=== PATIENT | female | born 1975 | race Caucasian/White ===

== ENCOUNTER 2021-05-22 22:04 | Inpatient (IN) | payer SELFPAY ==
[~2021-05-22] VITALS: Ht 162.6 cm; Wt 83.5 kg
[2021-05-22] MEDS ORDERED: ONDANSETRON HCL 4MG/2ML INJ IV STA (22:39)
[2021-05-22] MEDS ORDERED: SODIUM CHLORIDE 0.9% 1,000 ML IV ONE (22:45)
[2021-05-22 23:23] LABS: HEMATOCRIT. 32.9 % (36.0-48.0); HEMOGLOBIN. 11.3 g/dL (12.0-16.0); MEAN CORPUSCULAR VOLUME 90.2 fL (81.0-99.0); MEAN PLATELET VOLUME 7.4 fl (7.4-10.4); PLATELET 263 x1000/uL (130-400); RED BLOOD CELL COUNT 3.65 mill/uL (4.2-5.4); RED CELL DISTRIBUTION WIDTH 13.7 % (11.6-14.6)
[2021-05-22 23:24] LABS: CHLORIDE 101 mEq/L (98-107)
[2021-05-23] MEDS ORDERED: KETOROLAC 30MG/ML VIAL IV ONE (01:45)
[2021-05-23 02:01] LABS: CLARITY URINE TURBID (CLEAR); COLOR URINE YELLOW (YELLOW); KETONES URINE 2+ (NEGATIVE); LEUKOCYTE ESTERASE URINE 3+ (NEGATIVE); NITRITE URINE NEGATIVE (NEGATIVE); OCCULT BLOOD URINE 3+ (NEGATIVE); PH URINE 5.5 (4.5-8.0); PROTEIN URINE 1+ (NEGATIVE); SPECIFIC GRAVITY URINE 1.018 (1.005-1.030); UROBILINOGEN URINE 0.2 E.U./dL (0.2-1.0)
[2021-05-23] MEDS ORDERED: CEFTRIAXONE 1 G PREMIX 50 ML IV ONE (02:15)
[2021-05-23] MEDS ORDERED: ONDANSETRON HCL 4MG/2ML INJ IV ONE (03:45)
[2021-05-23] MEDS ORDERED: SODIUM CHLORIDE 0.9% 1,000 ML IV ONE ×2 (04:00)
[2021-05-23 04:33] LABS: PLATELET ESTIMATE NORMAL
[2021-05-23] MEDS ORDERED: ACETAMINOPHEN 650MG SUPP PR PRN (08:00)
[2021-05-23] MEDS ORDERED: ACETAMINOPHEN 650MG SUPP ONE (08:07)
[2021-05-23] MEDS ORDERED: CLONIDINE 0.1MG TABLET PO PRN (08:45)
[2021-05-23] MEDS ORDERED: DIPHENHYDRAMINE 50MG/ML VIAL IV PRN (08:45)
[2021-05-23] MEDS ORDERED: MORPHINE SULFATE 2 MG/ML CPJ (NOT FOR IM USE) IV PRN (08:45)
[2021-05-23] MEDS ORDERED: NALOXONE HCL 0.4MG/ML VIAL IV PRN (09:00)
[2021-05-23] MEDS: SODIUM CHLORIDE 0.9% 1,000 ML IV SCH ×2 (10:57→21:32)
[2021-05-23] MEDS ORDERED: DEXTROSE 50% WATER 50ML SYRINGE IV PRN (13:30)
[2021-05-23] MEDS: BLOOD SUGAR DIAGNOSTIC STRIP TEST SCH ×2 (16:40→21:00)
[2021-05-23 18:00] VITALS: BP 149/67
[2021-05-23] MEDS: INSULIN LISPRO 100 UNITS/ML SUBCUT SCH ×2 (18:34→21:28)
[2021-05-23 19:37] VITALS: BP 164/79
[2021-05-23] MEDS: ACETAMINOPHEN 325MG TABLET PO PRN (20:08)
[2021-05-23] MEDS: ONDANSETRON HCL 4MG/2ML INJ IV PRN (20:10)
[2021-05-23] MEDS ORDERED: CEFTRIAXONE 1,000 MG in DEXTROSE 5% WATER 50 ML IV SCH (21:00)
[2021-05-23] MEDS ORDERED: CEFTRIAXONE 1 G PREMIX 50 ML IV SCH (21:00)
[2021-05-23] MEDS ORDERED: INDO50CA99 PO (23:19)
[2021-05-23] MEDS ORDERED: ASPI-867 PO (23:19)
[2021-05-23] MEDS ORDERED: GLIP10TA10 PO (23:19)
[2021-05-23] MEDS ORDERED: CYCL10TA7 PO (23:19)
[2021-05-24] VITALS: BP 132/57
[2021-05-24] MEDS: ACETAMINOPHEN 325MG TABLET PO PRN ×2 (02:19→17:07)
[2021-05-24] MEDS: ONDANSETRON HCL 4MG/2ML INJ IV PRN (02:35)
[2021-05-24 04:27] VITALS: BP 120/58
[2021-05-24] MEDS ORDERED: METOCLOPRAMIDE HCL 10MG TABLET PO PRN (06:15)
[2021-05-24] MEDS: METOCLOPRAMIDE HCL 10MG/2ML VIAL IV PRN ×2 (06:27→12:48)
[2021-05-24 07:17] LABS: BASOPHILS % 0.2 % (0.0-2.0); EOSINOPHILS % 0.1 % (0.0-5.0); HEMATOCRIT. 29.4 % (36.0-48.0); HEMOGLOBIN. 9.8 g/dL (12.0-16.0); LYMPHOCYTES % 8.4 % (20.0-50.0); MEAN CORPUSCULAR HEMOGLOBIN 30.2 pg (28.0-32.0); MEAN CORPUSCULAR VOLUME 91.2 fL (81.0-99.0); MEAN PLATELET VOLUME 7.9 fl (7.4-10.4); MONOCYTES % 6.1 % (2.0-8.0); NEUTROPHILS % 85.2 % (40.0-76.0); PLATELET 213 x1000/uL (130-400); RED BLOOD CELL COUNT 3.23 mill/uL (4.2-5.4); RED CELL DISTRIBUTION WIDTH 13.6 % (11.6-14.6)
[2021-05-24 07:30] LABS: CHLORIDE 103 mEq/L (98-107)
[2021-05-24 07:40] VITALS: BP 129/65
[2021-05-24] MEDS: BLOOD SUGAR DIAGNOSTIC STRIP TEST SCH ×4 (07:40→20:39)
[2021-05-24 07:46] LABS: LDL CHOLESTEROL 59 mg/dL (5-100)
[2021-05-24 07:51] LABS: HDL CHOLESTEROL 49 mg/dL (40-59)
[2021-05-24] MEDS: INSULIN LISPRO 100 UNITS/ML SUBCUT SCH ×4 (08:42→21:20)
[2021-05-24] MEDS: SODIUM CHLORIDE 0.9% 1,000 ML IV SCH ×2 (08:46→17:10)
[2021-05-24 12:00] VITALS: BP 153/78
[2021-05-24 16:00] VITALS: BP 149/72
[2021-05-24 20:00] VITALS: BP 128/71
[2021-05-24] MEDS: MEROPENEM 1,000 MG in SODIUM CHLORIDE 0.9% 100 ML IV SCH (21:21)
[2021-05-25] VITALS: BP 150/76
[2021-05-25] MEDS: GUAIFENESIN-DM 200MG-20MG/10ML UDC PO PRN ×2 (00:15→21:20)
[2021-05-25] MEDS: SODIUM CHLORIDE 0.9% 1,000 ML IV SCH ×2 (01:04→11:00)
[2021-05-25 04:00] VITALS: BP 149/76
[2021-05-25] MEDS: MEROPENEM 1,000 MG in SODIUM CHLORIDE 0.9% 100 ML IV SCH ×3 (05:48→21:52)
[2021-05-25 06:05] LABS: BASOPHILS % 0.3 % (0.0-2.0); EOSINOPHILS % 0.8 % (0.0-5.0); HEMATOCRIT. 27.7 % (36.0-48.0); HEMOGLOBIN. 9.2 g/dL (12.0-16.0); MEAN CORPUSCULAR HEMOGLOBIN 30.3 pg (28.0-32.0); MEAN PLATELET VOLUME 7.9 fl (7.4-10.4); NEUTROPHILS % 80.9 % (40.0-76.0); PLATELET 215 x1000/uL (130-400); RED BLOOD CELL COUNT 3.04 mill/uL (4.2-5.4); RED CELL DISTRIBUTION WIDTH 13.4 % (11.6-14.6)
[2021-05-25 06:31] LABS: CHLORIDE 102 mEq/L (98-107)
[2021-05-25] MEDS: BLOOD SUGAR DIAGNOSTIC STRIP TEST SCH ×4 (07:21→21:22)
[2021-05-25] MEDS: INSULIN LISPRO 100 UNITS/ML SUBCUT SCH ×4 (07:56→21:22)
[2021-05-25 08:00] VITALS: BP 134/87
[2021-05-25 12:00] VITALS: BP 135/72
[2021-05-25] MEDS: ONDANSETRON HCL 4MG/2ML INJ IV PRN (12:49)
[2021-05-25 16:00] VITALS: BP 156/76
[2021-05-25 20:00] VITALS: BP 142/79
[2021-05-25] MEDS ORDERED: SULF-13 MT (22:05)
[2021-05-26] VITALS: BP 121/77
[2021-05-26] MEDS: GUAIFENESIN-DM 200MG-20MG/10ML UDC PO PRN ×3 (03:04→13:26)
[2021-05-26] MEDS: SODIUM CHLORIDE 0.9% 1,000 ML IV SCH ×2 (03:04→07:00)
[2021-05-26 04:00] VITALS: BP 144/80
[2021-05-26] MEDS: CEFAZOLIN 1000MG PREMIX 50 ML IV SCH ×2 (06:16→14:00)
[2021-05-26] MEDS: BLOOD SUGAR DIAGNOSTIC STRIP TEST SCH ×2 (06:28→12:20)
[2021-05-26 06:58] LABS: BASOPHILS % 0.6 % (0.0-2.0); EOSINOPHILS % 2.4 % (0.0-5.0); HEMOGLOBIN. 9.5 g/dL (12.0-16.0); LYMPHOCYTES % 16.1 % (20.0-50.0); MEAN CORPUSCULAR HEMOGLOBIN 30.6 pg (28.0-32.0); MEAN CORPUSCULAR VOLUME 90.5 fL (81.0-99.0); MEAN PLATELET VOLUME 8.9 fl (7.4-10.4); MONOCYTES % 7.8 % (2.0-8.0); NEUTROPHILS % 73.1 % (40.0-76.0); PLATELET 251 x1000/uL (130-400); RED BLOOD CELL COUNT 3.09 mill/uL (4.2-5.4); RED CELL DISTRIBUTION WIDTH 13.2 % (11.6-14.6)
[2021-05-26 06:59] LABS: CHLORIDE 106 mEq/L (98-107)
[2021-05-26 08:27] VITALS: BP 157/74
[2021-05-26] MEDS: INSULIN LISPRO 100 UNITS/ML SUBCUT SCH ×2 (08:43→13:19)
[2021-05-26 14:19] VITALS: BP 157/74
[2021-05-26 14:25] VITALS: BP 157/74
== END 2021-05-26 15:50 | disposition home or self-care (01) | DRG 720 ==
LOC: ER 22:04 → EDBD 05-23 05:14 → MICUSO 05-23 05:14 → 7EST 05-23 15:53 → 7WST 05-23 18:55 → 6WST 05-24 08:24
PROVIDERS: ADMIT Internal Medicine; ATTEND Internal Medicine
DX: A41.51 Sepsis due to Escherichia coli [E. coli] (principal); E87.1 Hypo-osmolality and hyponatremia; E11.9 Type 2 diabetes mellitus without complications; I10 Essential (primary) hypertension; D64.9 Anemia, unspecified; E66.9 Obesity, unspecified; Z20.822 Contact with and (suspected) exposure to COVID-19; N39.0 Urinary tract infection, site not specified; Z79.82 Long term (current) use of aspirin; Z68.31 Body mass index [BMI] 31.0-31.9, adult
CPT/HCPCS: 36415; 80048; 80053; 80061; 81003; 82962; 83036; 83605; 84145; 85025; 87077; 87186; 93005; 93970; 99291; J0690; J0696; J1815; J1885; J2185; J2405; J2765; J7030; J7050; J7060; U0003; U0005